=== PATIENT | male | born 1990 | race Caucasian/White ===

== ENCOUNTER 2017-10-18 10:58 | Emergency (ER) | payer SELFPAY ==
[~2017-10-18] VITALS: Ht 175.3 cm; Wt 85.7 kg
[2017-10-18 10:58] VITALS: BP 115/75
--- NOTE | 2017-10-18 11:18 | PHYS DOC ---
Past Medical History Past Medical History: Other Additional Past Medical Histor: POLY SUBSTANCE ABUSE/USE Past Surgical History: No Surgical History Additional Information: 1 PPD Alcohol Use: Rarely Drug Use: Heroin, Methamphetamine, Other Social History Narrative: "SPEED, PILLS, WHATEVER" Adult General Chief Complaint Chief Complaint: DRUG ABUSE HPI HPI Patient is a 26 year old male who presents with generally bodyaches. He states he's been doing heroin and speed the last 2 days. He states currently he's been living in the [facility]. EMS found him behind a dumpster. He denies any fevers chills nausea vomiting. He states his has generally bodyaches to 6 out of 10. He denies any vomiting nausea. He used to live with his girlfriend but not sure if he go back to her house. He got a usp in May. He denies any past medical history. Review of Systems Review of Systems Constitutional: Denies fever or chills [] Eyes: Denies change in visual acuity, redness, or eye pain [] HENT: Denies nasal congestion or sore throat [] Respiratory: Denies cough or shortness of breath [] Cardiovascular: No additional information not addressed in HPI [] GI: Denies abdominal pain, nausea, vomiting, bloody stools or diarrhea [] : Denies dysuria or hematuria [] Musculoskeletal: Denies back pain or joint pain [] Integument: Denies rash or skin lesions [] Neurologic: Denies headache, focal weakness or sensory changes [] Endocrine: Denies polyuria or polydipsia [] All other systems were reviewed and found to be within normal limits, except as documented in this note. Current Medications Current Medications Current Medications Medications (Trade) Dose Ordered Sig/Miko Start Time Stop Time Status Last Admin Dose Admin Multivitamins 10 ml/Thiamine HCl 100 mg/Folic Acid 1 mg/Sodium Chloride 1,011.2 ml @ 1,000.088 mls/hr 1X ONCE 10/18/17 11:30 10/18/17 12:30 DC 10/18/17 11:39 1,000.088 MLS/HR Sodium Chloride 1,000 ml @ 1,000 mls/hr 1X ONCE 10/18/17 12:45 10/18/17 12:45 DC Allergies Allergies Allergies Uncoded Allergies Type Severity Reaction Last Updated Verified UNKNOWN Allergy Unknown 10/18/17 Physical Exam Physical Exam Constitutional: Well developed, well nourished, no acute distress, non-toxic appearance. Disheveled with weakness seen in his hair and on his clothing HENT: Normocephalic, atraumatic, bilateral external ears normal, oropharynx moist, no oral exudates, nose normal. [] Eyes: PERRLA, EOMI, conjunctiva normal, no discharge. [] Neck: Normal range of motion, no tenderness, supple, no stridor. [] Cardiovascular:Heart rate regular rhythm, no murmur [] Lungs & Thorax: Bilateral breath sounds clear to auscultation [] Abdomen: Bowel sounds normal, soft, no tenderness, no masses, no pulsatile masses. [] Skin: Warm, dry, no erythema, no rash. [] Back: No tenderness, no CVA tenderness. [] Extremities: No tenderness, no cyanosis, no clubbing, ROM intact, no edema. [] Neurologic: Alert and oriented X 3, normal motor function, normal sensory function, no focal deficits noted. [] Psychologic: Affect normal, judgement normal, mood normal. [] Current Patient Data Vital Signs Vital Signs Date Time Temp Pulse Resp B/P (MAP) Pulse Ox O2 Delivery O2 Flow Rate FiO2 10/18/17 10:58 97.6 85 20 115/75 (88) 100 Room Air 97.6 Lab Values Laboratory Tests Test 10/18/17 11:26 White Blood Count 22.3 x10^3/uL (4.0-11.0) H Red Blood Count 5.07 x10^6/uL (4.30-5.70) Hemoglobin 14.4 g/dL (13.0-17.5) Hematocrit 43.1 % (39.0-53.0) Mean Corpuscular Volume 85 fL (79-100) Mean Corpuscular Hemoglobin 28 pg (25-35) Mean Corpuscular Hemoglobin Concent 33 g/dL (31-37) Red Cell Distribution Width 13.5 % (11.5-14.5) Platelet Count 193 x10^3/uL (140-400) Neutrophils (%) (Auto) 92 % (31-73) H Lymphocytes (%) (Auto) 3 % (24-48) L Monocytes (%) (Auto) 6 % (0-9) Eosinophils (%) (Auto) 0 % (0-3) Basophils (%) (Auto) 0 % (0-3) Neutrophils # (Auto) 20.5 x10^3uL (1.8-7.7) H Lymphocytes # (Auto) 0.6 x10^3/uL (1.0-4.8) L Monocytes # (Auto) 1.3 x10^3/uL (0.0-1.1) H Eosinophils # (Auto) 0.0 x10^3/uL (0.0-0.7) Basophils # (Auto) 0.0 x10^3/uL (0.0-0.2) Platelet Estimate Pending Sodium Level 134 mmol/L (136-145) L Potassium Level 4.9 mmol/L (3.5-5.1) Chloride Level 97 mmol/L (98-107) L Carbon Dioxide Level 19 mmol/L (21-32) L Anion Gap 18 (6-14) H Blood Urea Nitrogen 26 mg/dL (8-26) Creatinine 1.1 mg/dL (0.7-1.3) Estimated GFR (Cockcroft-Gault) 79.7 Glucose Level 61 mg/dL (70-99) L Calcium Level 9.6 mg/dL (8.5-10.1) Total Bilirubin 0.9 mg/dL (0.2-1.0) Direct Bilirubin 0.2 mg/dL (0.0-0.2) Aspartate Amino Transferase (AST) 46 U/L (15-37) H Alanine Aminotransferase (ALT) 45 U/L (16-63) Alkaline Phosphatase 111 U/L (46-116) Creatine Kinase 441 U/L (39-308) H Creatine Kinase MB (Mass) 2.3 ng/mL (0.0-3.6) Creatine Kinase MB Relative Index 0.5 % (0-4) Total Protein 8.5 g/dL (6.4-8.2) H Albumin 4.5 g/dL (3.4-5.0) Lipase 61 U/L (73-393) L Laboratory Tests 10/18/17 11:26 Laboratory Tests 10/18/17 11:26 EKG EKG [] Radiology/Procedures Radiology/Procedures [] Impressions: Drug abuse Acidosis likely starvation acidosis Course & Med Decision Making Course & Med Decision Making Pertinent Labs and Imaging studies reviewed. (See chart for details) Patient arrived in exhibited banana bag and then he pulled out his IV. He was able to eat a meal tray and was offered water. The pat team saw him and offered him the phone number to call for their drug treatment program. He was given information regarding homeless shelters. He left prior to discharge papers being given. Dragon Disclaimer Dragon Disclaimer This electronic medical record was generated, in whole or in part, using a voice recognition dictation system. NELLI IQBAL MD Oct 18, 2017 11:18
[2017-10-18] MEDS: MULTIVIT INFUSN,ADULT 4,VIT K 10 ML, THIAMINE 100 MG, FOLIC ACID 1 MG in IV NORMAL SALI... IV ONE (11:39)
[2017-10-18 11:54] LABS: BASO % 0 % (0-3); EOS % 0 % (0-3); HEMATOCRIT 43.1 % (39.0-53.0); HEMOGLOBIN 14.4 g/dL (13.0-17.5); LYMPH # 0.6 x10^3/uL (1.0-4.8); LYMPH % 3 % (24-48); MEAN CORPUSCULAR HEMOGLOBIN 28 pg (25-35); MEAN CORPUSCULAR HGB CONC 33 g/dL (31-37); MEAN CORPUSCULAR VOLUME 85 fL (79-100); MONO % 6 % (0-9); NEUT % 92 % (31-73); PLATELET COUNT 193 x10^3/uL (140-400); RED BLOOD COUNT 5.07 x10^6/uL (4.30-5.70); RED CELL DISTRIBUTION WIDTH 13.5 % (11.5-14.5); WHITE BLOOD COUNT 22.3 x10^3/uL (4.0-11.0)
[2017-10-18 12:10] LABS: CALCIUM 9.6 mg/dL (8.5-10.1); CREATININE 1.1 mg/dL (0.7-1.3); GFR 79.7; POTASSIUM 4.9 mmol/L (3.5-5.1)
[2017-10-18 12:16] LABS: ALBUMIN 4.5 g/dL (3.4-5.0); DIRECT BILIRUBIN 0.2 mg/dL (0.0-0.2); TOTAL BILIRUBIN 0.9 mg/dL (0.2-1.0); TOTAL PROTEIN 8.5 g/dL (6.4-8.2)
[2017-10-18 12:24] LABS: CKMB MASS 2.3 ng/mL (0.0-3.6)
[2017-10-18] MEDS ORDERED: IV NORMAL SALINE 1000ML BAG 1,000 ML IV ONE (12:45)
[2017-10-18 13:42] LABS: % EOS 1 % (0-5); PLT ESTIMATE ADEQUATE (ADEQUATE)
== END 2017-10-18 12:43 | disposition home or self-care (01) ==
LOC: ER 10:58
DX: F11.10 Opioid abuse, uncomplicated (principal); E87.2 Acidosis
CPT/HCPCS: 36415; 80048; 80076; 82553; 83690; 85007; 85025; 96365; 99284; J7030